=== PATIENT | male | born 1990 | race Caucasian/White ===

== ENCOUNTER 2023-05-13 02:59 | Emergency (ER) | payer BC ==
[~2023-05-13] VITALS: Ht 177.8 cm; Wt 113.4 kg
[2023-05-13] MEDS ORDERED: KETOROLAC TROMETHAMINE INJ 60 MG/2 ML VIAL IM ONE (03:30)
[2023-05-13] MEDS ORDERED: CYCLOBENZAPRINE 10 MG TABLET PO ONE (03:30)
[2023-05-13] MEDS ORDERED: MORPHINE SULFATE INJ 2 MG/ML DISP.SYRIN IM ONE (03:30)
[2023-05-13] MEDS ORDERED: KETOROLAC TROMETHAMINE INJ 30 MG/ML VIAL ONE (03:43)
[2023-05-13] MEDS ORDERED: MORPHINE SULFATE INJ 2 MG/ML DISP.SYRIN ONE (03:43)
[2023-05-13] MEDS ORDERED: CYCLOBENZAPRINE 10 MG TABLET ONE (03:43)
[2023-05-13] MEDS ORDERED: CYCL5TAB PO (05:34)
[2023-05-13] MEDS ORDERED: KETO10TA2 PO (05:34)
[2023-05-13 05:58] VITALS: BP 130/72; TEMP 98.9; O2SAT 96
== END 2023-05-13 05:58 | disposition home or self-care (01) ==
LOC: ER 03:14
DX: M54.50 Low back pain, unspecified (principal); F17.200 Nicotine dependence, unspecified, uncomplicated; Z98.890 Other specified postprocedural states; Z79.899 Other long term (current) drug therapy; V89.2XXA Person injured in unspecified motor-vehicle accident, traffic, initial encounter; Y93.89 Activity, other specified; Y92.89 Other specified places as the place of occurrence of the external cause; Y99.8 Other external cause status
CPT/HCPCS: 99285; 72131; 96372 ×2; 74176; J1885; J2270

== ENCOUNTER 2024-02-16 23:40 | Emergency (ER) | payer BC, OTHER ==
[~2024-02-16] VITALS: Ht 177.8 cm; Wt 99.8 kg
[~2024-02-16 23:40] MED LIST: CYCL5TAB PO; KETO10TA2 PO
[2024-02-17] MEDS ORDERED: KETOROLAC TROMETHAMINE INJ 30 MG/ML VIAL ONE (01:16)
[2024-02-17] MEDS: KETOROLAC TROMETHAMINE INJ 60 MG/2 ML VIAL IM ONE (01:20)
[2024-02-17] MEDS: ONDANSETRON 4 MG TAB.RAPDIS SL ONE (02:00)
[2024-02-17] MEDS: HYDROMORPHONE 1 MG/1 ML DISP.SYRIN IM ONE (02:00)
[2024-02-17] MEDS ORDERED: ONDANSETRON 4 MG TAB.RAPDIS ONE (02:25)
[2024-02-17] MEDS ORDERED: HYDROMORPHONE HCL 2 MG TABLET ONE (02:25)
[2024-02-17 02:42] VITALS: BP 133/81; TEMP 98.8; O2SAT 98
== END 2024-02-17 02:44 | disposition home or self-care (01) ==
LOC: ER 23:41
DX: G89.18 Other acute postprocedural pain (principal); F17.200 Nicotine dependence, unspecified, uncomplicated; Z98.890 Other specified postprocedural states; Z79.899 Other long term (current) drug therapy
CPT/HCPCS: 99284; 96372 ×2; 73130; J1885; Q0162